=== PATIENT | male | born 1985 | race Caucasian/White ===

== ENCOUNTER 2017-04-29 08:30 | Inpatient (IN) | payer OTHER ==
[~2017-04-29] VITALS: Ht 172.7 cm; Wt 159.8 kg
[2017-04-29 08:34] VITALS: BP 110/60
[2017-04-29 09:34] LABS: HEMATOCRIT 36.2 % (42.0-52.0); HEMOGLOBIN 12.2 g/dl (14.0-18.0); MEAN CELL VOLUME 81.7 fl (80.0-94.0); MEAN CORPUSCULAR HGB 27.5 pg (27.0-31.0); MEAN CORPUSCULAR HGB CONC 33.7 g/dl (33.0-37.0); MEAN PLATELET VOLUME 10.5 fl (9.6-12.3); PLATELET COUNT AUTOMATED 296 10*3/uL (130-400); RED BLOOD COUNT 4.43 10*6/uL (4.50-5.90); WHITE BLOOD COUNT 21.3 10*3/uL (4.8-10.8)
[2017-04-29 09:49] VITALS: BP 112/58
[2017-04-29 09:49] LABS: ALBUMIN 2.4 gm/dl (3.1-4.5); ALKALINE PHOSPHATASE 83 U/L (45-117); BUN 14 mg/dl (7-24); CHLORIDE 101 mmol/L (98-107); CREATININE 0.86 mg/dL (0.70-1.30); POTASSIUM 3.4 mmol/L (3.5-5.1); SGOT/AST 21 IU/L (3-35); SGPT/ALT 45 U/L (12-78); SODIUM 135 mmol/L (136-145); TOTAL PROTEIN 6.9 gm/dL (6.4-8.2)
--- NOTE | 2017-04-29 09:56 | NUR ---
PHONE NUMBER TO CALL ON DISCHARGE FOR TRANSPORTATION [phone]
--- NOTE | 2017-04-29 09:57 | NUR ---
Time: 956 A 31 year old MALE admitted to 5E under services of JARVIS AGUILAR DO. Pt. arrived via stretcher from ER. Chief complaint: ABSCESS TO RIGHT WRIST AREA, HARD, RED SCABBED, NO DRAINAGE. MIL HULL
[2017-04-29 09:59] LABS: PLATELET SUFFICIENCY NORMAL (NORMAL); TOTAL CELLS COUNTED 100 #CELLS
[2017-04-29 12:00] VITALS: BP 115/62
--- NOTE | 2017-04-29 12:09 | NUR ---
NOTIFIED DR WEINSTEIN OF CONSULT
[2017-04-29 16:00] VITALS: BP 110/49
--- NOTE | 2017-04-29 18:01 | NUR ---
NOTIFIED DR SOLANO AND DR WEINSTEIN OF PATIENT'S CT SCAN.
--- NOTE | 2017-04-29 19:25 | NUR ---
NOTIFIED ROHAN AT [facility] THAT PATIENT WAS ADMITTED.
[2017-04-29 20:00] VITALS: BP 128/57
[2017-04-30] VITALS (8 sets, daily range): BP systolic 98–158; BP diastolic 54–72
--- NOTE | 2017-04-30 02:00 | NUR ---
PT RESTING IN BED WITH EYES CLOSED RESPS EASY AND NONLABORED WITH NO S/S OF DISTRSS CALL LIGHT WITH IN REACH
[2017-04-30 06:25] LABS: BASO # 0.1 10*3/uL (0.0-0.1); BASO % 0.4 % (0.0-1.0); EOS % 5.9 % (1.0-4.0); HEMATOCRIT 37.9 % (42.0-52.0); HEMOGLOBIN 12.7 g/dl (14.0-18.0); LYMPH # 1.8 10*3/uL (1.3-4.4); LYMPH % 10.7 % (27.0-41.0); MEAN CELL VOLUME 82.2 fl (80.0-94.0); MEAN CORPUSCULAR HGB 27.5 pg (27.0-31.0); MEAN CORPUSCULAR HGB CONC 33.5 g/dl (33.0-37.0); MEAN PLATELET VOLUME 10.5 fl (9.6-12.3); MONO # 0.6 10*3/uL (0.1-1.0); MONO % 3.8 % (3.0-9.0); NEUT # 12.8 10*3/uL (2.3-7.9); PLATELET COUNT AUTOMATED 353 10*3/uL (130-400); RED BLOOD COUNT 4.61 10*6/uL (4.50-5.90); RED CELL DISTRI WIDTH 14.3 % (0-14.5); WHITE BLOOD COUNT 16.4 10*3/uL (4.8-10.8)
[2017-04-30 06:52] LABS: ACT PARTIAL THROMBO TIME 22.7 SECONDS (20.8-31.5); INTERNATIONAL NORM RATIO 1.2 (2.0-3.5)
[2017-04-30 06:55] LABS: ALBUMIN 2.3 gm/dl (3.1-4.5); BUN 11 mg/dl (7-24); CHLORIDE 107 mmol/L (98-107); POTASSIUM 3.7 mmol/L (3.5-5.1); SODIUM 139 mmol/L (136-145)
[2017-04-30 07:04] LABS: ALKALINE PHOSPHATASE 82 U/L (45-117); CHOLESTEROL 104 mg/dL (<200); CREATININE 0.73 mg/dL (0.70-1.30); FREE T4 1.49 ng/dl (0.76-1.46); HDL CHOLESTEROL 25 mg/dl (40-60); LDL CHOLESTEROL 56 mg/dL (9-159); PHOSPHOROUS 1.6 mg/dL (2.5-4.9); SGOT/AST 24 IU/L (3-35); SGPT/ALT 42 U/L (12-78); TOTAL PROTEIN 7.1 gm/dL (6.4-8.2); TRIGLYCERIDES 113 mg/dl (<150); VLDL CHOLESTEROL 23 mg/dL (6-40)
--- NOTE | 2017-04-30 08:30 | NUR ---
[employer] VS. PT OFF FLOOR AT PRESENT.
[2017-05-01] VITALS: BP 104/61
[2017-05-01 08:00] VITALS: BP 122/71
--- NOTE | 2017-05-01 10:00 | NUR ---
RELAY RECORD CLERK VS. PT CAME FROM [facility] IN [place]. HE SPOKE TO THEM WHILE IWAS IN THE ROOM AND TOLD THEM DR TOLD HIM HE WILL PROBALY BE DC TOMORROW. THEY TOLD PT THEY WILL SEND [facility] TO PICK HIM UP. THEY JUST NEED TO KNOW WHEN HE IS DC TO [facility]. NURSE AWARE AND ALSO OF PAPERWORK NEEDED. PH# [phone]
[2017-05-01 12:00] VITALS: BP 118/59
--- NOTE | 2017-05-01 15:42 | NUR ---
Dr. Vazquez was in to see patient this morning and removed surgical dressing and changed the dressing this am. Will evaluate patient tomorrow since dressing was changed this am.
[2017-05-01 16:00] VITALS: BP 120/65
--- NOTE | 2017-05-01 16:35 | NUR ---
PHOTGRAPHED RIGHT WRIST POST OP I/D DAY #1. CHRONIC MANAGER NOTIFIED
[2017-05-01 20:00] VITALS: BP 126/62
[2017-05-02] VITALS: BP 120/64
[2017-05-02 07:30] LABS: BASO % 0.4 % (0.0-1.0); EOS # 0.7 10*3/uL (0.0-0.4); EOS % 7.7 % (1.0-4.0); HEMATOCRIT 33.6 % (42.0-52.0); HEMOGLOBIN 10.8 g/dl (14.0-18.0); LYMPH # 2.3 10*3/uL (1.3-4.4); LYMPH % 25.2 % (27.0-41.0); MEAN CELL VOLUME 83.8 fl (80.0-94.0); MEAN CORPUSCULAR HGB 26.9 pg (27.0-31.0); MEAN CORPUSCULAR HGB CONC 32.1 g/dl (33.0-37.0); MEAN PLATELET VOLUME 10.6 fl (9.6-12.3); MONO # 0.5 10*3/uL (0.1-1.0); MONO % 4.9 % (3.0-9.0); NEUT # 5.6 10*3/uL (2.3-7.9); NEUT % 60.1 % (47.0-73.0); PLATELET COUNT AUTOMATED 325 10*3/uL (130-400); RED BLOOD COUNT 4.01 10*6/uL (4.50-5.90); RED CELL DISTRI WIDTH 14.4 % (0-14.5); WHITE BLOOD COUNT 9.3 10*3/uL (4.8-10.8)
[2017-05-02 07:45] LABS: BUN 8 mg/dl (7-24); CHLORIDE 109 mmol/L (98-107); CREATININE 0.64 mg/dL (0.70-1.30); POTASSIUM 3.8 mmol/L (3.5-5.1); SODIUM 143 mmol/L (136-145)
[2017-05-02 08:00] VITALS: BP 123/70
--- NOTE | 2017-05-02 10:21 | NUR ---
TIMOTEO ASHER [id number] Please refer to the physician's history and physical for past medical history, comorbid conditions, and allergies. Diagnosis: ABCESS Marcos Score: 23,LOW OR NO RISK WOUND DESCRIPTIONS: Location of the wound: right wrist Type of wound: abscess Thickness: Partial Size: 0.2cm x 1.0cm x 0.1cm Tunneling: none Undermining: none Sinus Tract: none Presence of Exudate: Serosanguineous Amount: Light Color: Red Odor: None Periwound Skin Appearance: Normal Wound edges: approximated Pain (associated with wound): none at time of assessment How does patient state this happened? pt stated it just appeared and was causing him discomfort. Surface the patient is resting on: Isoflex SKIN PREVENTION RECOMMENDATION: 1. Pressure redistribution support surface as appropriate 2. Elevate heels 3. Remove boots/TEDS every shift and reapply 4. Head of bed 30 degrees as tolerated 5. Assess nutrition and hydration 6. Manage moisture 7. Avoid the use of containment devices while in bed 8. Use absorptive products on surfaces limit layers of linens on bed 9. Turn and reposition every 1-2 hours in bed and every 1 hour in chair as tolerated 10. Weight shifts every 15 minutes while up in chair 11. Offloading with pillows or device to keep heels elevated off bed 12. Monitor skin at least every shift 13. Inspect under medical devices twice a day WOUND TREATMENT RECOMMENDATIONS: Continue current treatment as order per Dr. Vazquez
[2017-05-02 12:00] VITALS: BP 113/56
[2017-05-02] MEDS ORDERED: MINOCYCLINE100 MG PO (12:06)
[2017-05-02 16:00] VITALS: BP 126/68
--- NOTE | 2017-05-02 16:45 | NUR ---
CALLED SAM GILMORE AT TO GIVE REPORT ON PT. REPORT RECIEVED.
--- NOTE | 2017-05-02 16:48 | NUR ---
Discharge instructions reviewed with patient. Patient receptive and verbalizes understanding. Follow-up care arranged AT . Report given to Neyda GILMORE. Written instructions given to patient. JOSE WALKER
== END 2017-05-02 16:48 | DRG 853 ==
LOC: ED 08:30 → EDBD 08:31 → 5E 09:11 → EDHOLD 09:11 → 5E 09:34
PROVIDERS: Emergency Medicine; Hospitalist; Student in an Organized Health Care Education/Training Program; ADMIT Internal Medicine
PROC: 0J9G0ZZ Drainage of Right Lower Arm Subcutaneous Tissue and Fascia, Open Approach (ICD-10-PCS; principal; 2017-04-30)
DX: A41.9 Sepsis, unspecified organism (principal); E43 Unspecified severe protein-calorie malnutrition; L02.511 Cutaneous abscess of right hand; E87.1 Hypo-osmolality and hyponatremia; L03.113 Cellulitis of right upper limb; Z68.43 Body mass index [BMI] 50.0-59.9, adult; F11.10 Opioid abuse, uncomplicated; E87.6 Hypokalemia; K21.9 Gastro-esophageal reflux disease without esophagitis; F17.210 Nicotine dependence, cigarettes, uncomplicated; F19.90 Other psychoactive substance use, unspecified, uncomplicated; E66.01 Morbid (severe) obesity due to excess calories; F41.9 Anxiety disorder, unspecified; I80.9 Phlebitis and thrombophlebitis of unspecified site; Z71.6 Tobacco abuse counseling; B95.62 Methicillin resistant Staphylococcus aureus infection as the cause of diseases classified elsewhere